=== PATIENT | female | born 1945 | race Caucasian/White ===

== ENCOUNTER 2017-07-25 19:02 | Emergency (ER) | payer MEDICAID, MEDICARE ==
[~2017-07-25] VITALS: Ht 157.5 cm; Wt 72.3 kg
[2017-07-25 19:43] LABS: BASOPHILS # (AUTO) 0.1 X10'3 (0-0.2); BASOPHILS % (AUTO) 0.7 % (0-1); EOSINOPHILS # (AUTO) 0.4 X10'3 (0-0.9); EOSINOPHILS % (AUTO) 3.9 % (0-6); HEMATOCRIT 40.6 % (35.0-45.0); HEMOGLOBIN 13.7 g/dl (12.0-16.0); LYMPHOCYTES # (AUTO) 3.4 X10'3 (1.1-4.8); LYMPHOCYTES % (AUTO) 30.1 % (21-51); MEAN CORPUSCULAR HEMOGLOBIN 29.9 PG (27.0-31.0); MEAN CORPUSCULAR HGB CONC 33.8 % (33.0-36.5); MEAN CORPUSCULAR VOLUME 88.5 FL (78-98); MEAN PLATELET VOLUME 9.1 FL (7.4-10.4); MONOCYTES # (AUTO) 0.7 X10'3 (0-0.9); MONOCYTES % (AUTO) 6.3 % (2-12); NEUTROPHILS # (AUTO) 6.6 X10'3 (1.8-7.7); PLATELET COUNT 230 X10'3 (140-440); RED BLOOD COUNT 4.59 X10'6 (4.20-5.60); RED CELL DISTRIBUTION WIDTH 13.1 % (11.5-14.5); WHITE BLOOD COUNT 11.2 X10'3 (4.5-11.0)
[2017-07-25 19:54] LABS: INR 0.9 INR; PARTIAL THROMBOPLASTIN TIME 25 SECONDS (22-32); PROTHROMBIN TIME 9.6 SECONDS (9.0-12.0)
[2017-07-25 19:57] LABS: ALANINE AMINOTRANSFERASE 31 U/L (12-78); ALBUMIN 4.2 G/DL (3.4-5.0); ALBUMIN/GLOBULIN RATIO 1.2 (1.1-1.5); ALKALINE PHOSPHATASE 119 IU/L (46-116); ANION GAP 11 (8-16); ASPARTATE AMINO TRANSFERASE 16 U/L (10-37); BILIRUBIN,TOTAL 0.3 MG/DL (0.1-1.0); BLOOD UREA NITROGEN 16 MG/DL (7-18); BUN/CREATININE RATIO 17.2 (6.6-38.0); CALCIUM 9.5 MG/DL (8.5-10.1); CHLORIDE 104 MMOL/L (99-107); CREATININE 0.93 MG/DL (0.40-0.90); GLUCOSE 203 MG/DL (70-104); POTASSIUM 4.2 MMOL/L (3.5-5.1); SODIUM 139 MMOL/L (135-145); TOTAL CARBON DIOXIDE 24.2 MMOL/L (24-32); TOTAL PROTEIN 7.7 G/DL (6.4-8.2); eGFR 59 ML/MIN
[2017-07-25] MEDS ORDERED: MORPHINE 2MG in 2ml NS syringe IV PRN (21:25)
[2017-07-25] MEDS ORDERED: morphine 4 MG/ML inj SYRINge IV PRN (21:29)
[2017-07-25] MEDS ORDERED: HYDROcodone/acetaminophen 5mg/325mg tablet PO ONE (21:55)
[2017-07-25 22:18] VITALS: BP 168/90
== END 2017-07-25 22:21 | disposition home or self-care (01) ==
LOC: ER 19:02
DX: R07.89 Other chest pain (principal); R51 Headache; E11.9 Type 2 diabetes mellitus without complications; Z86.73 Personal history of transient ischemic attack (TIA), and cerebral infarction without residual deficits; Z88.5 Allergy status to narcotic agent
CPT/HCPCS: 36415; 71045; 72125; 80053; 84484; 85025; 85610; 85730; 93005; 99285; J2270

== ENCOUNTER 2017-10-31 11:11 | Emergency (ER) | payer MEDICARE, OTHER ==
[~2017-10-31] VITALS: Ht 160 cm; Wt 69.9 kg
[~2017-10-31 11:11] MED LIST: CEPH500C2 PO
[2017-10-31 12:38] LABS: BASOPHILS % (AUTO) 0.5 % (0-1); EOSINOPHILS # (AUTO) 0.3 X10'3 (0-0.9); EOSINOPHILS % (AUTO) 3.7 % (0-6); HEMOGLOBIN 13.5 g/dl (12.0-16.0); LYMPHOCYTES # (AUTO) 2.5 X10'3 (1.1-4.8); LYMPHOCYTES % (AUTO) 27.9 % (21-51); MEAN CORPUSCULAR HEMOGLOBIN 30.4 PG (27.0-31.0); MEAN CORPUSCULAR HGB CONC 34.6 % (33.0-36.5); MEAN CORPUSCULAR VOLUME 87.8 FL (78-98); MEAN PLATELET VOLUME 9.3 FL (7.4-10.4); MONOCYTES # (AUTO) 0.5 X10'3 (0-0.9); MONOCYTES % (AUTO) 5.4 % (2-12); NEUTROPHILS # (AUTO) 5.5 X10'3 (1.8-7.7); NEUTROPHILS % (AUTO) 62.5 % (42-75); PLATELET COUNT 224 X10'3 (140-440); RED BLOOD COUNT 4.44 X10'6 (4.20-5.60); RED CELL DISTRIBUTION WIDTH 13.6 % (11.5-14.5); WHITE BLOOD COUNT 8.8 X10'3 (4.5-11.0)
[2017-10-31 12:49] LABS: ALBUMIN 3.9 G/DL (3.4-5.0); ANION GAP 10 (8-16); BLOOD UREA NITROGEN 23 MG/DL (7-18); BUN/CREATININE RATIO 19.3 (6.6-38.0); CALCIUM 8.9 MG/DL (8.5-10.1); CHLORIDE 101 MMOL/L (99-107); CREATININE 1.19 MG/DL (0.40-0.90); GLUCOSE 364 MG/DL (70-104); POTASSIUM 4.1 MMOL/L (3.5-5.1); SODIUM 135 MMOL/L (135-145); TOTAL CARBON DIOXIDE 23.9 MMOL/L (24-32); eGFR 45 ML/MIN
[2017-10-31 13:17] VITALS: BP 139/66
[2017-10-31 18:40] LABS: OCCULT BLOOD STOOL NEGATIVE (Neg)
== END 2017-10-31 13:18 | disposition home or self-care (01) ==
LOC: ER 11:12
DX: K92.1 Melena (principal); E11.9 Type 2 diabetes mellitus without complications; R10.9 Unspecified abdominal pain; Z88.5 Allergy status to narcotic agent; Z79.2 Long term (current) use of antibiotics
CPT/HCPCS: 36415; 80048; 82272; 85025; 99284

== ENCOUNTER 2019-02-12 11:17 | Day surgery (SDC) | payer MEDICARE, MEDICAID ==
[2019-02-08 16:53] LABS: BASOPHILS # (AUTO) 0.1 X10'3 (0-0.2); BASOPHILS % (AUTO) 0.7 % (0-1); EOSINOPHILS # (AUTO) 0.5 X10'3 (0-0.9); EOSINOPHILS % (AUTO) 5.3 % (0-6); LYMPHOCYTES # (AUTO) 3.3 X10'3 (1.1-4.8); LYMPHOCYTES % (AUTO) 31.8 % (21-51); MEAN CORPUSCULAR HEMOGLOBIN 30.2 PG (27.0-31.0); MEAN CORPUSCULAR HGB CONC 33.8 g/dL (33.0-36.5); MEAN CORPUSCULAR VOLUME 89.3 FL (78-98); MONOCYTES # (AUTO) 0.5 X10'3 (0-0.9); MONOCYTES % (AUTO) 5.3 % (2-12); NEUTROPHILS # (AUTO) 5.8 X10'3 (1.8-7.7); NEUTROPHILS % (AUTO) 56.9 % (42-75); PRE OP HEMATOCRIT 37.6 % (35.0-45.0); PRE OP HEMOGLOBIN 12.7 g/dL (12.0-16.0); PRE OP PLATELET COUNT 227 X10'3 (140-440); RED BLOOD COUNT 4.21 X10'6 (4.20-5.60); RED CELL DISTRIBUTION WIDTH 13.8 % (11.5-14.5)
[2019-02-08 17:03] LABS: ALBUMIN/GLOBULIN RATIO 1.1 (1.1-1.5); ALKALINE PHOSPHATASE 89 IU/L (46-116); BLOOD UREA NITROGEN 11 MG/DL (7-18); BUN/CREATININE RATIO 13.3 (6.6-38.0); CALCIUM 9.3 MG/DL (8.5-10.1); CHLORIDE 107 MMOL/L (99-107); CREATININE 0.83 MG/DL (0.40-0.90); PRE OP ALT 25 U/L (30-65); PRE OP ANION GAP 11 (8-16); PRE OP AST 18 U/L (10-37); PRE OP BILIRUB, TOTAL 0.2 MG/DL (0.0-1.0); PRE OP GLUCOSE 125 MG/DL (70-104); PRE OP POTASSIUM 4.2 MMOL/L (3.4-5.1); PRE OP SODIUM 142 MMOL/L (135-145); TOTAL PROTEIN 7.6 G/DL (6.4-8.2); eGFR 67 ML/MIN
[2019-02-08 17:16] LABS: PRE OP PROTIME 10.2 SECONDS (9.0-12.0)
[2019-02-09 09:33] LABS: HEMOGLOBIN A1C 8.9 % (4.5-6.2)
[2019-02-12] VITALS (24 sets, daily range): BP systolic 98–160; BP diastolic 47–90
[~2019-02-12] VITALS: Ht 156.2 cm; Wt 66.6 kg
[~2019-02-12 11:17] MED LIST changes: +ATOR20TA66 PO; -CEPH500C2 PO; +CHOL2000 PO; +ENAL20TA75 PO; +LINA5TAB4 PO; +METF-438 PO
[2019-02-12] MEDS ORDERED: ceFOXitin 2 GM ADDvantage bag 100 ML IV ONE (11:30)
[2019-02-12] MEDS ORDERED: ringers solution, lacted 1,000 ML IV SCH ×2 (11:30→15:04)
[2019-02-12] MEDS ORDERED: famotidine 20mg tablet PO ONE (11:30)
[2019-02-12] MEDS ORDERED: clindamycin phosphate 40gm vag cream ONE (12:05)
[2019-02-12] MEDS ORDERED: ceFAZolin 1000mg inj ONE (12:05)
[2019-02-12] MEDS ORDERED: vasoPRESSIN 20 units/ml inj. ONE (12:06)
[2019-02-12] MEDS ORDERED: LIDOcaine 1% (10mg/ml) 2ml vial ONE (12:32)
[2019-02-12] MEDS ORDERED: insulin regular, human 10 units/0.1 ml syringe IV ONE ×2 (12:50→16:35)
[2019-02-12] MEDS ORDERED: sevoflurane 250ml liquid IH ONE (14:48)
[2019-02-12] MEDS ORDERED: fentaNYL/PF 50MCG/1 ML 2ML syringe ONE ×2 (14:49→15:22)
[2019-02-12] MEDS ORDERED: HYDROmorphone inj. 0.5 MG/0.5 ML DISP.SYRIN IV PRN (15:05)
[2019-02-12] MEDS ORDERED: morphine 4 MG/ML inj SYRINge IV PRN (15:05)
[2019-02-12] MEDS ORDERED: ondansetron/PF 4mg/2ml inj IV PRN ×2 (15:05→16:00)
[2019-02-12] MEDS ORDERED: fluoroscein sod 10% (100mg/ml) 5ml vial ONE (15:26)
[2019-02-12] MEDS ORDERED: propofol inj 20 ML IV ONE (15:26)
[2019-02-12] MEDS ORDERED: dexamethasone sod phosphate 4mg/ml inj. ONE (15:26)
[2019-02-12] MEDS ORDERED: ondansetron/PF 4mg/2ml inj ONE (15:26)
[2019-02-12] MEDS ORDERED: LIDOcaine 2% (20mg/ml) 5ml vial ONE (15:26)
--- NOTE | 2019-02-12 15:40 | NUR ---
Received report from NATHALY Baires.
[2019-02-12] MEDS ORDERED: HYDROcodone/acetaminophen 5mg/325mg tablet PO PRN ×2 (16:00)
[2019-02-12] MEDS ORDERED: ketorolac tromethamine 15mg/ml inj. IV PRN (16:00)
[2019-02-12] MEDS ORDERED: temazepam 15mg capsule PO PRN (16:00)
[2019-02-12] MEDS ORDERED: diphenhydrAMINE 50 mg/ml inj IV PRN (16:00)
[2019-02-12] MEDS ORDERED: naloxone 0.4 mg/ml inj IV PRN (16:00)
[2019-02-12] MEDS ORDERED: CADD PCA waste documentation MC PRN (16:00)
[2019-02-12] MEDS ORDERED: normal saline 500ml IV soln 500 ML IV PRN (16:00)
[2019-02-12] MEDS ORDERED: HYDROmorphone/NS 1 mg/ml CADD 50 ML IV SCH (16:04)
--- NOTE | 2019-02-12 16:06 | NUR ---
Received from OR via BED, accompanied by Anesthesiologist and report given by Anesthesiologist. PT DROWSY AND RESTLESS, MOVING ARMS ALL OVER, 2 MG MORPHINE GIVEN W/GOOD RESULTS, PT RESTING AFTER W/NO S/S OF DISTRESS/DISCOMFORT. PT AWOKE CALM, FOLLOWS COMMANDS, 5 UNITS REGULAR INSULIN GIVEN FOR BS 179, RECHECK WAS 160. PTS DAUGHTER AT BEDSIDE, PT COMFORTABLE, DENIES PAIN. DRINKING FLUIDS AWAITING TRANSFER TO SURGICAL FLOOR. Addendum: 02/12/19 at 1840 by Viry Martinez RN Amended: Links added.
[2019-02-12] MEDS: HYDROmorphone/NS 1 mg/ml CADD 50 ML IV SCH ×3 (17:58→23:00)
--- NOTE | 2019-02-12 18:24 | NUR ---
Problems reprioritized. Patient report given, questions answered & plan of care reviewed with NATHALY Hirsch.
--- NOTE | 2019-02-12 18:26 | NUR ---
Problems reprioritized. Patient report given, questions answered & plan of care reviewed with NATHALY Hirsch.
--- NOTE | 2019-02-12 18:46 | NUR ---
Report called to receiving nurse. Transferred via BED, 2 BAGS OF PT Belongings SENT W/PT TO ROOM 348B, PTS DAUGHTER HAS PTS UPPER DENTURES, RECEIVING RN AT BEDSIDE TO RECEIVE PT, BLL, CALL LIGHT GIVEN, SIDE RAILS UP X2, PTS DAUGHTER AT BEDSIDE. Special Issues communicated to receiving nurse. YES. Addendum: 02/12/19 at 1911 by Viry Martinez RN Amended: Links added.
--- NOTE | 2019-02-12 18:50 | NUR ---
Patient arrived to floor via bed accompanied by daughter Flaco and recovery operator helper Viry. Pt. alert and in no pain at this time. Dilaudid cadd pump (standard settings) explained to both patient and instructed daughter to NOT push for her mom.
[2019-02-12] MEDS: ringers solution, lacted 1,000 ML IV SCH ×2 (21:13→23:59)
[2019-02-13] VITALS: BP 107/58
[2019-02-13] MEDS: HYDROmorphone/NS 1 mg/ml CADD 50 ML IV SCH ×4 (01:00→07:00)
[2019-02-13] MEDS: ringers solution, lacted 1,000 ML IV SCH ×2 (03:58→15:59)
[2019-02-13 05:01] LABS: BASOPHILS % (AUTO) 0.2 % (0-1); EOSINOPHILS % (AUTO) 0 % (0-6); HEMATOCRIT 32.3 % (35.0-45.0); HEMOGLOBIN 10.8 g/dl (12.0-16.0); LYMPHOCYTES # (AUTO) 1.5 X10'3 (1.1-4.8); LYMPHOCYTES % (AUTO) 11.4 % (21-51); MEAN CORPUSCULAR HEMOGLOBIN 29.7 PG (27.0-31.0); MEAN CORPUSCULAR HGB CONC 33.3 g/dL (33.0-36.5); MEAN CORPUSCULAR VOLUME 89.2 FL (78-98); MEAN PLATELET VOLUME 9.4 FL (7.4-10.4); MONOCYTES # (AUTO) 0.7 X10'3 (0-0.9); MONOCYTES % (AUTO) 5.6 % (2-12); NEUTROPHILS # (AUTO) 11.1 X10'3 (1.8-7.7); NEUTROPHILS % (AUTO) 82.8 % (42-75); PLATELET COUNT 177 X10'3 (140-440); RED BLOOD COUNT 3.62 X10'6 (4.20-5.60); RED CELL DISTRIBUTION WIDTH 13.5 % (11.5-14.5); WHITE BLOOD COUNT 13.4 X10'3 (4.5-11.0)
--- NOTE | 2019-02-13 06:30 | NUR ---
Problems reprioritized. Patient report given, questions answered & plan of care reviewed with Laurie ANDERSEN.
[2019-02-13 08:00] VITALS: BP 100/44
[2019-02-13] MEDS ORDERED: lisinopril 20mg tablet PO SCH (08:00)
[2019-02-13] MEDS ORDERED: metFORMIN 500mg tablet PO SCH (08:00)
[2019-02-13 11:39] VITALS: BP 99/42
== END 2019-02-13 17:46 | disposition home or self-care (01) ==
LOC: PAS 11:17 → SUR 3N 15:59 → PAS 02-13 17:46
PROVIDERS: ATTEND Specialist
DX: N81.10 Cystocele, unspecified (principal); N36.42 Intrinsic sphincter deficiency (ISD); N39.3 Stress incontinence (female) (male); I10 Essential (primary) hypertension; E11.9 Type 2 diabetes mellitus without complications; M19.90 Unspecified osteoarthritis, unspecified site; Z88.5 Allergy status to narcotic agent; Z87.891 Personal history of nicotine dependence; Z79.899 Other long term (current) drug therapy; Z79.84 Long term (current) use of oral hypoglycemic drugs; Z98.890 Other specified postprocedural states; Z79.82 Long term (current) use of aspirin; Z79.01 Long term (current) use of anticoagulants; Z80.3 Family history of malignant neoplasm of breast
CPT/HCPCS: 36415; 57240; 57288; 80053; 82948; 83036; 85025; 85610; 85730; 86870; 86885; 86900; 86901; 86905; 86920; 86922; C1771; J0690; J0694; J1100; J1170; J1815; J2001; J2270; J2405; J2704; J3010; J7120; 88302; A4215; A4314; A4355; A4618; A6250; A7000; G0378; J3490

== ENCOUNTER 2019-02-19 09:48 | Inpatient (IN) | payer MEDICARE, MEDICAID ==
[~2019-02-19] VITALS: Ht 157.5 cm; Wt 68.2 kg
[2019-02-19 10:24] LABS: CLARITY,URINE CLEAR (Clear); COLOR,URINE YELLOW (Yellow); GLUCOSE, URINE >=1000 mg/dl (Neg); KETONES,URINE 15 mg/dl (Neg); LEUKOCYTE ESTERASE ,URINE TRACE (Neg); NITRITES, URINE NEGATIVE (Neg); OCCULT BLOOD,URINE LARGE (Neg); PH,URINE 5.5 (4.8-8.0); PROTEIN,URINE 30 mg/dl (Neg); UROBILINOGEN,URINE 0.2 E.U/dL (0.2-1.0)
[2019-02-19 10:26] LABS: UA COLLECTION TYPE OTHER
[2019-02-19 10:31] LABS: WBC,URINE TNTC /HPF (0-4)
[2019-02-19 10:32] LABS: BACTERIA,URINE 2+ /HPF (Neg); MUCUS STRANDS NONE SEEN /LPF (Neg); RBC,URINE 50-100 /HPF (0-2); SQUAMOUS EPITHELIAL CELL,UR FEW /LPF (FEW); WBC CLUMPS,URINE FEW /HPF (NEGATIVE)
[2019-02-19 10:38] LABS: BASOPHILS # (AUTO) 0.1 X10'3 (0-0.2); BASOPHILS % (AUTO) 0.4 % (0-1); EOSINOPHILS # (AUTO) 0.1 X10'3 (0-0.9); EOSINOPHILS % (AUTO) 0.4 % (0-6); HEMATOCRIT 37.1 % (35.0-45.0); HEMOGLOBIN 12.5 g/dl (12.0-16.0); LYMPHOCYTES # (AUTO) 0.6 X10'3 (1.1-4.8); LYMPHOCYTES % (AUTO) 3.7 % (21-51); MEAN CORPUSCULAR HEMOGLOBIN 29.9 PG (27.0-31.0); MEAN CORPUSCULAR HGB CONC 33.7 g/dL (33.0-36.5); MEAN CORPUSCULAR VOLUME 88.6 FL (78-98); MEAN PLATELET VOLUME 8.9 FL (7.4-10.4); MONOCYTES # (AUTO) 1.2 X10'3 (0-0.9); MONOCYTES % (AUTO) 7.9 % (2-12); NEUTROPHILS # (AUTO) 13.1 X10'3 (1.8-7.7); NEUTROPHILS % (AUTO) 87.6 % (42-75); PLATELET COUNT 228 X10'3 (140-440); RED BLOOD COUNT 4.19 X10'6 (4.20-5.60); RED CELL DISTRIBUTION WIDTH 13.8 % (11.5-14.5)
[2019-02-19 10:52] LABS: PARTIAL THROMBOPLASTIN TIME 26 SECONDS (22-32)
[2019-02-19 10:55] LABS: ALANINE AMINOTRANSFERASE 14 U/L (12-78); ALBUMIN 3.6 G/DL (3.4-5.0); ALKALINE PHOSPHATASE 97 IU/L (46-116); ANION GAP 9 (8-16); ASPARTATE AMINO TRANSFERASE 11 U/L (10-37); BILIRUBIN,TOTAL 0.6 MG/DL (0.1-1.0); BLOOD UREA NITROGEN 14 MG/DL (7-18); BUN/CREATININE RATIO 13.7 (6.6-38.0); CHLORIDE 101 MMOL/L (99-107); CREATININE 1.02 MG/DL (0.40-0.90); GLUCOSE 290 MG/DL (70-104); MAGNESIUM 1.1 MG/DL (1.5-2.4); POTASSIUM 3.9 MMOL/L (3.5-5.1); SODIUM 136 MMOL/L (135-145); TOTAL CARBON DIOXIDE 25.7 MMOL/L (24-32); TOTAL PROTEIN 7.3 G/DL (6.4-8.2); eGFR 53 ML/MIN
[2019-02-19] MEDS ORDERED: normal saline 1000ML IV soln IV ONE (11:35)
[2019-02-19] MEDS ORDERED: levoFLOXACIN-Levaquin 500mg/D5 100 ML IV ONE (11:35)
[2019-02-19] MEDS ORDERED: HYDR-3964 PO (11:59)
[2019-02-19] MEDS ORDERED: magnesium hydroxide 30ml (MOM) UD suspension PO PRN (12:05)
[2019-02-19] MEDS ORDERED: ondansetron/PF 4mg/2ml inj IV PRN (12:05)
[2019-02-19] MEDS ORDERED: mag hydrox/Alum hydrox/simeth 30ml oral suspension PO PRN (12:05)
[2019-02-19] MEDS ORDERED: acetaminophen 325mg tablet PO PRN (12:05)
[2019-02-19] MEDS: CefTRIAXone 2gm/D5W 50ml 50 ML IV SCH (12:48)
--- NOTE | 2019-02-19 13:36 | NUR ---
report called to sheri coleman all questions answered
[2019-02-19] MEDS ORDERED: magnesium 2GM in 50ml NS 50 ML IV PRN (14:40)
[2019-02-19] MEDS ORDERED: potassium CL 10mEq/100ml bag 100 ML IV PRN (14:40)
[2019-02-19] MEDS ORDERED: dextrose 50%-water 50ml dispensing syringe IV PRN ×2 (14:40)
[2019-02-19] MEDS ORDERED: dextrose ORAL solution 15 GM/59 ML bottle PO PRN ×2 (14:40)
[2019-02-19] MEDS ORDERED: potassium Cl 20 mEq SR tablet PO PRN ×2 (14:40)
[2019-02-19] MEDS ORDERED: magnesium 4gm in 100ml NS 100 ML IV PRN (14:40)
[2019-02-19] MEDS ORDERED: glucagon, human recombinant 1mg kit SUBCUT PRN (14:40)
[2019-02-19] MEDS ORDERED: MESSAGE TO PHARMACY PO ONE (14:40)
[2019-02-19] MEDS: normal saline 1000ml 1,000 ML IV SCH ×2 (14:48→22:48)
[2019-02-19 15:05] VITALS: BP 105/47
[2019-02-19] MEDS: magnesium Cl slow-release 64mg tablet PO PRN ×2 (15:19→19:54)
--- NOTE | 2019-02-19 15:23 | NUR ---
Pt settled in and appears comfortable with daughter at bedside.
--- NOTE | 2019-02-19 18:43 | NUR ---
Patient in room [facility]. I have received report from Janell ANDERSEN and had the opportunity to ask questions and assume patient care. Pt sittting up in bed with 2 visitors at bedside. No signs of distress, will continue to monitor.
--- NOTE | 2019-02-19 18:44 | NUR ---
Problems reprioritized. Patient report given, questions answered & plan of care reviewed with Mary Lou ANDERSEN. Family at bedside, no distress.
[2019-02-19] MEDS: insulin Lispro (HumaLOG) vial - multi-dose SQ SCH (18:47)
[2019-02-19] MEDS: heparin, porcine 5000 units/ml vial SQ SCH (19:55)
[2019-02-19 20:00] VITALS: BP 129/55
[2019-02-19] MEDS ORDERED: insulin glargine (Lantus) pen - multi-dose SQ SCH (21:00)
--- NOTE | 2019-02-19 21:04 | NUR ---
Called Dr. Brower regarding pt blood sugar of 94. Pt is currently a level 2, however she only takes metformin at home and does not use insulin or take lantus. Per Dr. Brower holding the Lantus for tonight.
[2019-02-19] MEDS ORDERED: benzonatate 100mg capsule PO PRN (22:05)
[2019-02-19] MEDS: HYDROcodone/acetaminophen 5mg/325mg tablet PO PRN (22:48)
[2019-02-20 00:11] VITALS: BP 131/59
[2019-02-20 05:06] LABS: BASOPHILS # (AUTO) 0.1 X10'3 (0-0.2); BASOPHILS % (AUTO) 0.5 % (0-1); EOSINOPHILS # (AUTO) 0.2 X10'3 (0-0.9); HEMATOCRIT 29.7 % (35.0-45.0); HEMOGLOBIN 10.1 g/dl (12.0-16.0); LYMPHOCYTES # (AUTO) 2.2 X10'3 (1.1-4.8); LYMPHOCYTES % (AUTO) 20.4 % (21-51); MEAN CORPUSCULAR HEMOGLOBIN 30.2 PG (27.0-31.0); MEAN CORPUSCULAR VOLUME 88.8 FL (78-98); MEAN PLATELET VOLUME 8.7 FL (7.4-10.4); MONOCYTES # (AUTO) 1.3 X10'3 (0-0.9); MONOCYTES % (AUTO) 12.1 % (2-12); PLATELET COUNT 196 X10'3 (140-440); RED BLOOD COUNT 3.35 X10'6 (4.20-5.60); RED CELL DISTRIBUTION WIDTH 13.5 % (11.5-14.5); WHITE BLOOD COUNT 10.7 X10'3 (4.5-11.0)
[2019-02-20 05:48] LABS: ALBUMIN 2.6 G/DL (3.4-5.0); ANION GAP 9 (8-16); BLOOD UREA NITROGEN 10 MG/DL (7-18); BUN/CREATININE RATIO 11.4 (6.6-38.0); CHLORIDE 107 MMOL/L (99-107); CREATININE 0.88 MG/DL (0.40-0.90); GLUCOSE 186 MG/DL (70-104); POTASSIUM 3.9 MMOL/L (3.5-5.1); SODIUM 140 MMOL/L (135-145); TOTAL CARBON DIOXIDE 24.4 MMOL/L (24-32); eGFR 63 ML/MIN
[2019-02-20 06:00] VITALS: BP 111/58
--- NOTE | 2019-02-20 06:30 | NUR ---
Patient in room [facility]. I have received report from Mary Lou and had the opportunity to ask questions and assume patient care.
--- NOTE | 2019-02-20 06:38 | NUR ---
Problems reprioritized. Patient report given, questions answered & plan of care reviewed with Gloria ANDERSEN and Astrid ANDERSEN.
--- NOTE | 2019-02-20 06:50 | NUR ---
Patient in room [facility]. I have received report from Beverly ANDERSEN and had the opportunity to ask questions and assume patient care.
[2019-02-20 07:18] LABS: MAGNESIUM 1.3 MG/DL (1.5-2.4)
[2019-02-20] MEDS ORDERED: linagliptin 5mg tablet PO SCH (08:00)
[2019-02-20] MEDS: atorvastatin 20mg tablet PO SCH (08:59)
[2019-02-20] MEDS: magnesium Cl slow-release 64mg tablet PO PRN ×2 (09:00→20:25)
[2019-02-20] MEDS: heparin, porcine 5000 units/ml vial SQ SCH ×2 (09:01→20:26)
[2019-02-20] MEDS: CefTRIAXone 2gm/D5W 50ml 50 ML IV SCH (09:09)
[2019-02-20] MEDS: insulin Lispro (HumaLOG) vial - multi-dose SQ SCH ×3 (09:10→18:37)
[2019-02-20] MEDS: normal saline 1000ml 1,000 ML IV SCH ×2 (09:11→20:23)
[2019-02-20] MEDS ORDERED: FLU VACC QS 2019-20 (6 MOS UP) 60 MCG/0.5 ML VIAL IMVAC ONE (10:00)
[2019-02-20 11:00] VITALS: BP 133/69
--- NOTE | 2019-02-20 11:06 | NUR ---
Student Medication Administration: For this medication-pass time frame, all medication were reviewed, dispensed, administered and documented per hospital policy by Kathie chief nursing executive.
--- NOTE | 2019-02-20 11:06 | NUR ---
Student documentation: I have reviewed and agree with all interventions, assessments performed and documented by Kathie, nursing home assistant.
--- NOTE | 2019-02-20 11:44 | NUR ---
DM consult: Pt with A1c 8.9 seen at bedside with daughter present. Pt states she currently does not see any doctor for DM management however will be setting up an appointment following discharge. Pt reports taking DM medications per rx and states she checks her BG levels fasting q morning with resulting numbers 200-240, which is consistent with current A1c. Pt states she eats a late dinner and used to walk afterwards to help decrease her blood sugars however hasn't been doing that lately r/t the colder weather. Pt states she is going to try to change the time she goes walking in order to help with DM management. Pt states she currently doesn't follow and specific diet, doesn't know what foods contain carbs, and hasn't had any previous nutrition therapy education for DM management. Pt provided with written and verbal DM education with referral to outpatient DM class. Discussed carb counting, foods that contain carbs, consistent carb intake with moderation, and protein intake for satiety. Pt and daughter able to provide teach back method. All of patient's questions were answered at this time. RD contact information was provided and pt/daughter encouraged to reach out if they should have any further questions. Pt currently on heart healthy CHO controlled diet documented with 25% PO intake of meat/protein and 100% PO intake of starch. Pt states she is getting full from meals okay and has no food preferences at this time. Pt reports only food allergy is shellfish and denies difficulty chewing/swallowing or constipation/diarrhea. LBM 02/20 after receiving MoM. Will continue to follow. Addendum: 02/20/19 at [address] Amended: Links added.
--- NOTE | 2019-02-20 12:23 | NUR ---
Patient report given, questions answered & plan of care reviewed with Keisha student nurse.
[2019-02-20] MEDS: HYDROcodone/acetaminophen 5mg/325mg tablet PO PRN (15:34)
--- NOTE | 2019-02-20 17:14 | NUR ---
reviewed student nurse charting
--- NOTE | 2019-02-20 17:56 | NUR ---
Problems reprioritized. Patient report given, questions answered & plan of care reviewed with Gloria ANDERSEN.
--- NOTE | 2019-02-20 18:38 | NUR ---
Problems reprioritized. Patient report given, questions answered & plan of care reviewed with Mary Lou RN by Alise ANDERSEN.
--- NOTE | 2019-02-20 18:53 | NUR ---
Patient in room [facility]. I have received report from Gloria ANDERSEN and Genia ANDERSEN and had the opportunity to ask questions and assume patient care. Pt laying in bed visiting with her daughter. No signs of distress, will continue to monitor.
[2019-02-20 20:00] VITALS: BP 123/64
[2019-02-20] MEDS: lactobacillus rhamnosus 10,000 MMU CELLS/CAPSULE PO SCH (20:25)
[2019-02-21] VITALS: BP 137/61
[2019-02-21] MEDS: normal saline 1000ml 1,000 ML IV SCH (05:04)
[2019-02-21 05:30] LABS: BASOPHILS # (AUTO) 0.1 X10'3 (0-0.2); BASOPHILS % (AUTO) 1.2 % (0-1); EOSINOPHILS # (AUTO) 0.3 X10'3 (0-0.9); EOSINOPHILS % (AUTO) 3.1 % (0-6); HEMATOCRIT 33.3 % (35.0-45.0); HEMOGLOBIN 11.5 g/dl (12.0-16.0); LYMPHOCYTES # (AUTO) 1.9 X10'3 (1.1-4.8); LYMPHOCYTES % (AUTO) 20.8 % (21-51); MEAN CORPUSCULAR HEMOGLOBIN 30.5 PG (27.0-31.0); MEAN CORPUSCULAR HGB CONC 34.5 g/dL (33.0-36.5); MEAN CORPUSCULAR VOLUME 88.3 FL (78-98); MEAN PLATELET VOLUME 9.5 FL (7.4-10.4); MONOCYTES % (AUTO) 10.4 % (2-12); NEUTROPHILS % (AUTO) 64.5 % (42-75); PLATELET COUNT 220 X10'3 (140-440); RED BLOOD COUNT 3.77 X10'6 (4.20-5.60); RED CELL DISTRIBUTION WIDTH 13.4 % (11.5-14.5); WHITE BLOOD COUNT 9.3 X10'3 (4.5-11.0)
[2019-02-21 05:41] LABS: ALBUMIN 2.9 G/DL (3.4-5.0); ANION GAP 8 (8-16); BLOOD UREA NITROGEN 8 MG/DL (7-18); BUN/CREATININE RATIO 9.4 (6.6-38.0); CALCIUM 8.6 MG/DL (8.5-10.1); CHLORIDE 106 MMOL/L (99-107); CREATININE 0.85 MG/DL (0.40-0.90); GLUCOSE 219 MG/DL (70-104); MAGNESIUM 1.4 MG/DL (1.5-2.4); POTASSIUM 3.9 MMOL/L (3.5-5.1); SODIUM 138 MMOL/L (135-145); TOTAL CARBON DIOXIDE 23.6 MMOL/L (24-32); eGFR 66 ML/MIN
--- NOTE | 2019-02-21 06:01 | NUR ---
Problems reprioritized. Patient report given, questions answered & plan of care reviewed with Gloria ANDERSEN.
--- NOTE | 2019-02-21 06:49 | NUR ---
Patient in room [facility]. I have received report from Mary Lou ANDERSEN and had the opportunity to ask questions and assume patient care.
[2019-02-21 07:00] VITALS: BP 155/77
[2019-02-21] MEDS: lactobacillus rhamnosus 10,000 MMU CELLS/CAPSULE PO SCH (09:14)
[2019-02-21] MEDS: CefTRIAXone 2gm/D5W 50ml 50 ML IV SCH (09:14)
[2019-02-21] MEDS: atorvastatin 20mg tablet PO SCH (09:15)
[2019-02-21] MEDS: heparin, porcine 5000 units/ml vial SQ SCH (09:18)
[2019-02-21] MEDS: insulin Lispro (HumaLOG) vial - multi-dose SQ SCH (09:22)
[2019-02-21 11:00] VITALS: BP 137/61
[2019-02-21] MEDS ORDERED: AMOX500C2 PO (12:04)
--- NOTE | 2019-02-21 14:57 | NUR ---
Discharge instructions reviewed with patient and daughter at bedside. All questions answered. patients IV dc'd cannula intact. Patients was taken to grandsons vehicle via wheelchair.
== END 2019-02-21 14:40 | disposition home or self-care (01) | DRG 872 ==
LOC: ER 09:49 → ED HOLD 12:01 → SUR 3N 13:44
PROVIDERS: ADMIT Family Medicine; ATTEND Family Medicine
DX: A41.9 Sepsis, unspecified organism (principal); N39.0 Urinary tract infection, site not specified; E11.9 Type 2 diabetes mellitus without complications; I10 Essential (primary) hypertension; J45.909 Unspecified asthma, uncomplicated; M41.9 Scoliosis, unspecified; G89.29 Other chronic pain; K21.9 Gastro-esophageal reflux disease without esophagitis; M54.9 Dorsalgia, unspecified; M48.00 Spinal stenosis, site unspecified; Z88.6 Allergy status to analgesic agent; Z23 Encounter for immunization; Z86.73 Personal history of transient ischemic attack (TIA), and cerebral infarction without residual deficits; Z79.84 Long term (current) use of oral hypoglycemic drugs
CPT/HCPCS: 36415; 71045; 80048; 80053; 81001; 82948; 83605; 83735; 84145; 85025; 85610; 85730; 87040; 87077; 87081; 87088; 87186; 93005; 94760; 96365; 99291; G0378; J0696; J1644; J1815; J1956; J7030; Q2037

== ENCOUNTER 2021-03-16 08:15 | Emergency (ER) | payer MEDICARE, MEDICAID ==
[~2021-03-16] VITALS: Ht 152.4 cm; Wt 67.7 kg
[~2021-03-16 08:15] MED LIST changes: +HYDR-3964 PO
[2021-03-16 10:04] VITALS: BP 156/85
[2021-03-16] MEDS ORDERED: bacitracin 15gm ointment TP ONE (10:25)
== END 2021-03-16 10:47 | disposition home or self-care (01) ==
LOC: ER 08:15
DX: T23.251A Burn of second degree of right palm, initial encounter (principal); M25.561 Pain in right knee; M25.531 Pain in right wrist; I10 Essential (primary) hypertension; J45.909 Unspecified asthma, uncomplicated; K21.9 Gastro-esophageal reflux disease without esophagitis; E11.9 Type 2 diabetes mellitus without complications; G89.29 Other chronic pain; Z79.899 Other long term (current) drug therapy; X15.0XXA Contact with hot stove (kitchen), initial encounter; Y93.89 Activity, other specified; Y92.89 Other specified places as the place of occurrence of the external cause; Y99.8 Other external cause status
CPT/HCPCS: 73110; 99284